=== PATIENT | male | born 1990 | race Caucasian/White ===

== ENCOUNTER → 2020-07-13 | Outpatient (CLI) | payer OTHER ==
[~2020-07-13] MED LIST: DOSS PO; IBUPROFEN400 MG PO; PERCOCET 7.5-31 EACH PO; ZOFRAN4 MG PO
== END ==
LOC: RAD 15:03
DX: M25.562 Pain in left knee (principal); M17.12 Unilateral primary osteoarthritis, left knee; Z98.890 Other specified postprocedural states
CPT/HCPCS: 73562

== ENCOUNTER → 2021-07-12 | Outpatient (CLI) | payer OTHER | LOC: KOH-I 10:38 | DX: R10.9 Unspecified abdominal pain (principal); N20.0 Calculus of kidney; K76.0 Fatty (change of) liver, not elsewhere classified | CPT/HCPCS: 74176 ==